=== PATIENT | male | born 1975 | race Caucasian/White ===

== ENCOUNTER 2017-03-29 08:36 | Day surgery (SDC) | payer OTHER ==
--- NOTE | 2017-03-21 13:42 | PCM.HPSURG ---
Subjective Date of Service: Mar 10, 2017 Referring Provider: Admitting Physician: Primary Care Physician: Nopcp Attending Physician: Joel Douglass MD Chief Complaint SEE BELOW History of Present Illness Patient: Edgar Ambrocio Date of : 1975 Visit Type: Pre Op Visit Date: 03/10/2017 01:00 PM This 41 year old male presents for Preop MIS Left L3-4 Microdiscectomy & Fat Graft. History of Present Illness: 1. Preop MIS Left L3-4 Microdiscectomy & Fat Graft This is a 41 year old male referred by [facility] (PCP) Dr. Yuval Calderon M.D. 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 This patient was last evaluated Dr. Douglass's Partner Neurosurgeon Dr. Arben Ponce M.D. on 01/26/2017 document a history of intermittent lower back pain. He associates this tear is very physical lifestyle & participation in sports. 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 He works out of a local [employer] gym. Approximately 2 months ago he got with the left lower extremity pain that radiated to his anterior cavazos. This is a new symptom and was incapacitating. He does not recall any inciting event or further injury other than his usual activity level. He has undergone career resource specialist, acupuncture, massage, & epidural steroid injection on 01/17/2017 at [facility] without sufficient relief his pain was 10/10. He has been taking hydrocodone/oxycodone, & Flexeril which only "takes the edge off". He is unable to sleep & concentrate, without affecting his performance at work where he functions as a senior accounting specialist for the [employer]. He spends most of his day in the office reading contacts. No new bowel or bladder discomfort or symptoms down the right lower extremity. No symptoms in the upper extremities. DIAGNOSTIC IMAGING: MRI of the lumbar spine is available for review from 01/10/2017. This demonstrates 5 lumbar vertebra. Multilevel spondylosis mild at most levels, except L4-5 where there is a "large left posterior lateral disc protrusion extending into the left neural foramen with moderate narrowing inferior disc extrusion in subarticular recess compressing & displacing the left L5 nerve root ". ASSESSMENT: 1. Left L4-5 disc extrusion with left L5 radiculopathy. 2. Left L5 motor weakness. The patient denies any related complete or acute loss of control of bowel or bladder function, saddle paresthesia or anesthesia. The patient has a reported pertinent past medical, surgical, family, & social history for past surgical history, & unremarkable medical history except for chronic recurrent exacerbations of back pain with no other then the above known positive history &/or review of all other organ systems. The patient's related complaints have been a serious detriment to their happiness and activities of daily living. 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 The procedure is scheduled to be performed by Dr. Joel Douglass M.D. on 03/29/2017. PHYSICAL EXAM General: This is a well-developed, well-nourished, male who is alert, cooperative, & appears to be in no acute distress with language and speech that is intact & fluent. There is no evidence of recent or remote memory impairment. HEENT: Head is normocephalic, atraumatic. Neck: Non-tender, [FULL] range of motion. Shane's, Lhermittes & Distraction is [NEGATIVE], & No adenopathy. Lungs: Clear to auscultation bilaterally. Heart: Regular rate & rhythm. No audible murmur. Abdomen: Soft, & non-tender. Back: No gross scoliosis, & non-tender. Extremities: No peripheral edema. Radial, dorsalis pedis pulses 2+ bilaterally. Fabers is [NEGATIVE] for hip pathology. Straight leg raise is positive on the left. Tinel's & Phalen's are [NEGATIVE] with no tenderness over cubital tunnel. Neurologic: Alert and oriented x 3. Language and speech are intact & fluent. No evidence of recent or remote memory impairment. Fund of knowledge is appropriate for age and level of education. Mood is euthymic. Cranial nerves: Pupils are equal and reactive to light and accommodation. Extra- ocular movements are intact. Visual arshad are intact with direct confrontation bilaterally. Sensation is intact on the face bilaterally. No facial asymmetry. Hearing appear to be intact bilaterally. Palate rises symmetrically. Shoulder shrug is symmetrical. Tongue is midline. Motor strength: [5/5] bilateral deltoid, biceps, triceps, wrist extension, handgrip; hip flexion, knee extension, plantar flexion, & extensor hallucis longus. Deep Tendon Reflexes: [2+] biceps, [2+] brachioradialis, [2+] triceps, [2+] knee jerks, [2+] ankle jerks. Toes are left dorsiflexion 4+/5 & right dorsiflexion 5/5. Down-going to plantar stimulation. Gill's sign is [ NEGATIVE]. Muscle Bulk and Tone: Intact in the upper & lower extremities. Sensation: Diminished pinprick and light touch in a left L5 dermatomal distribution.. Coordination: Intact abippp-sr-onld & lnvy-az-swsb, rapid alternating movements in the upper & lower extremities. Gait: Intact, tandem gait can be performed. Romberg is negative. Past Medical/Surgical History (Detailed) 03/10/2017 Family History (Detailed) 03/10/2017 Social History (Detailed) 03/10/2017 Tobacco use reviewed. Preferred language is Montenegrin. The patient does not need an web production artist. Smoking status: Never smoker. Smoking Status Use Status Type Smoking Status Years Used Total Pack Years no/never Never smoker Allergies: Ingredient Reaction Medication Name Comment NO KNOWN ALLERGIES Review of Systems System Neg/Pos Details MS Positive Back pain. ENMT Negative Hearing loss. Psych Negative Anxiety and depression. Constitutional Negative Chills and fever. Integumentary Negative Mrsa and rash. Negative Dysuria, urge incontinence and urinary incontinence. GI Negative Abdominal pain, constipation, diarrhea, nausea and vomiting. Eyes Negative Double vision and vision loss. MS Negative Bone/joint symptoms and muscle weakness. [place]/Lymph Negative Blood clots. Neuro Negative Dizziness, headache and seizures. Respiratory Negative Dyspnea, apnea and wheezing. Cardio Negative Chest pain, irregular heartbeat/palpitations, leg swelling and pacemaker. Endocrine Negative Weight gain and weight loss. Vital Signs Height Time ft in cm Last Measured Height Position % 1:03 PM 5.0 8.00 172.72 Weight/BSA/BMI Time lb oz kg Context % BMI kg/m2 BSA m2 1:03 PM 194.40 88.178 dressed with shoes 29.56 2.06 Blood Pressure Time BP mm/Hg Position Side Site Method Cuff Size 1:03 PM 104/68 sitting left wrist automatic adult Temperature/Pulse/Respiration Time Temp F Temp C Temp Site Pulse/min Pattern Resp/ min 1:03 PM 98.2 36.8 64 regular Pain Scale Time Pain Score Method 1:03 PM 3/10 Numeric Pain Intensity Scale Measured By Time Measured by 1:03 PM Deyanira Altman MA Screening Summary:o The following were reviewed: tobacco use Physical Exam Exam Findings Details Comments SEE ABOVE Assessment/Plan # Detail Type Description 1. Assessment Lumbar radiculopathy (M54.16). 2. Assessment Preoperative examination (Z01.818). Patient Plan We including your Attending Surgeon have discussed the risks and benefits associated your scheduled procedure which you have verbally acknowledged understanding including but not limited to the possibility of an outcome that we are unable to predict or was not mentioned. 1. You are scheduled for a left L4-5 minimally invasive microdiscectomy with harvest of subcutaneous fat from separate incision for epidural fat graft with Dr. Joel Douglass M.D. at [facility] on 03/29/2017. 2. Check in time is 8 AM. Also please ignore instructions below if told otherwise by your preadmission nurse or if you do not take the medications listed below. 3. Nothing to eat after midnight the night before surgery. You may take all of your "approved" medications with small sips of water. Remember to take your a.m. hypertension medication if it is a beta willam and ends in "olol. Otherwise ask your doctor if you need to hold your a.m. hypertension medication. 4. No aspirin, ibuprofen, Naprosyn, or other NSAIDs starting 7 days prior to surgery. 5. Please stop Warfarin/Coumadin or other blood thinners such as Plavix, Aggrenox, or Xarelto 7 days prior to your surgical procedure and follow specific instructions from your prescribing provider. 6. Please stop Lovenox bridging in the morning one day prior to procedure. 7. Please stop Suboxone/Buprenorphine at least 4 days prior to procedure. 8. Go to the hospital today to get her preoperative testing done. Take the order form to the surgery desk on the second floor of the hospital, [facility] (main entrance next to the emergency entrance). I will notify you if there is any test results that require further workup prior to surgery. 9. Follow the instructions you were given today, use the cleansing cloths the night before as well as the morning of her surgery. 10. If you are prescribed inhalers, CPAP or BiPAP machines you use at home bring along with you to the hospital. 11. ONLY If you take medications for Diabetes: If you have an insulin pump continue lowest (typically night-time) basal rate into the a.m. If you do not have a pump check h your a.m. blood sugar and hold insulin if BS less than 100. If you are taking long-acting, intermediate acting (NPH) or 70/30 preparation : Take half on day of procedure. If you are taking ultra long-acting insulin such as glargine, Lantus either at night or in the a.m. continue as scheduled ( including day of surgery). If you take short acting regular insulin (insulin not delivered via pump) discontinue on day of procedure. 12. Please call if you have any questions before your surgery: [phone]. Today's instructions/counseling include(s) Pre-operative instructions given to the patient and or legal roofing sales representative(s) orally and in writing. 13. Our office will contact you if there are any test results that require further workup prior to surgery. Provider Plan The patient's history and examination as well as radiological findings were reviewed with Dr. Joel Douglass M.D. and conveyed the patient in detail. The findings are consistent with lumbar disc extrusion & left L5 radiculopathy and are most likely the cause of the patient's severe, intractable, and debilitating low back pain radiating to the left lower extremity with weakness, numbness, & paresthesias. The patient has failed extensive conservative treatment for this condition. The treatment options were discussed with the patient. The options include attempt to live with the condition, reattempt conservative treatment, try a pain management intervention / injection or consider a surgical intervention. We are not extremely optimistic that further conservative treatment, pain management intervention and/or injection will adequately resolve the patient's symptoms of severe, intractable, and debilitating low back pain radiating to the left lower extremity with weakness, numbness, & paresthesias. Therefore we recommend left L4-5 minimally invasive microdiscectomy with harvest of subcutaneous fat from separate incision for epidural fat graft. The patient was provided/offered educational materials pertaining to their diagnosis and the above discussed procedure. We discussed the risks and benefits associated with this surgery. A spine model was used to explain the nature of this type of surgery. The risk of the required anesthesia was also mentioned including but not limited to organ failure such as heart attack, pneumonia and stroke even . The risk of this type of surgery was also mentioned. Including but not limited to an unsuccessful outcome, residual symptoms, referred or radiating posterior spinal myofascial inflammatory pain or spasm, post operative instability, instrumentation failure, sensory changes, blood loss, blood clots, wound infection, spinal cord or nerve damage, CSF or lymph leak, damage to neighboring structures such as perforation of the abdominal vasculature, bowel, ureter, and bladder, resulting in temporary or permanent dysfunction, even disability, paralysis, and . The recovery of this type of surgery was also mentioned. There is a 15% chance of recurrent disc herniation with a discectomy. The chances for improvement of the related left lower extremity symptomology at one year is 70-80%. The chances of improvement of unrelated local mechanical lower back pain is 50%. The patient verbalized understanding all the risks and benefits, knowing that it is impossible to predict or guarantee every surgical outcome; and would like to proceed with the above discussed procedure anyways. Surgery is scheduled for 03/29/2017 The standard [facility] preoperative screening tests, medicine restrictions, and logistical protocols apply. Any preoperative testing is within normal limits to undergo the above discussed procedure unless otherwise noted in the medical record. Medications (added, continued or stopped this visit): Start Date Medication Directions Stop Date cyclobenzaprine 10 mg tablet take 1 tablet by oral route 2 times every day 03/10/2017 docusate sodium 250 mg capsule take 1 capsule by oral route 2 times every day hydrocodone 10 mg-acetaminophen 325 mg tablet take 1 tablet by oral route every 4 - 6 hours as needed for pain oxycodone-acetaminophen 5 mg-325 mg tablet take 1 - 2 tablet by oral route every 4 - 6 hours as needed for pain 03/28/2017 Percocet 7.5 mg-325 mg tablet take 1 - 2 tablet by oral route every 4-6 hours as needed not to exceed 8 tablets per 24hrs Counseling/Educational Factors: Counseling / educational factors reviewed. Counseling / educational factors reviewed. This is a visit of 60 minutes. 50 minutes were spent counseling. This document may have been created using voice recognition software or other electronic means and may contain inadvertent claim manager errors. Provider: Kg CARTWRIGHT 03/10/2017 03:06 PM Document generated by: Kg Esqueda 03/10/2017 03:06 PM CC Providers: Yuval Calderon [address] [place] [id number]- Yuval Calderon [address] [place] [id number]- [place] [address] [place] [address] w matthias castro l i n i c s Shonda aly g Kg Esqueda PA-C March 21, 2017 13:42
[~2017-03-29] VITALS: Ht 172.7 cm; Wt 87.1 kg
[2017-03-29] VITALS (10 sets, daily range): BP systolic 101–123; BP diastolic 64–80; PULSE 59–86; RESP 10–16; O2SAT 95–99
[~2017-03-29 08:36] MED LIST: BACITRACIN IRRIGATION ONE; CYCL10TA9 PO; CeFAZolin 2 Gm/50 mL D5W IV Premix IV ONE; DOCU250C2 PO; Dexamethasone 4 mg/mL Inj IVPUSH PRN; EPHEDrine Sulfate 50 mg/mL Inj IVPUSH PRN; HYDR-4003 PO; HYDROmorphone 1 mg/mL Inj IVPUSH PRN; Labetalol 5 mg/mL 4 mL Inj IV PRN; Lactated Ringer's 1,000 ML IV SCH; Lactated Ringer's 500 ML IV PRN; MetoCLOpramide 5 mg/mL 2 mL Inj IVPUSH PRN; OXYC1TAB24 PO; Ondansetron 2 mg/mL 2 mL Inj IVPUSH PRN; Phenylephrine 10,000 mCg/mL Inj IVPUSH PRN; Thrombin Powder 5,000 Unit TOPICAL ONE; fentaNYL-PF 50 mCg/mL 2 mL Inj IVPUSH PRN; hydrALAZINE 20 mg/mL Inj IVPUSH PRN
[2017-03-29] MEDS ORDERED: Ondansetron 2 mg/mL 2 mL Inj ONE (08:37)
[2017-03-29] MEDS ORDERED: Succinylcholine Chloride 20 mg/mL 5 mL Inj ONE (08:37)
[2017-03-29] MEDS ORDERED: Dexamethasone 4 mg/mL Inj ONE (08:37)
[2017-03-29] MEDS ORDERED: Ketamine 10 mg/mL 20 mL Inj ONE (08:37)
[2017-03-29] MEDS ORDERED: Propofol 10,000 mCg/mL 20 mL Inj ONE (08:37)
[2017-03-29] MEDS ORDERED: fentaNYL-PF 50 mCg/mL 2 mL Inj ONE (08:37)
[2017-03-29] MEDS ORDERED: CeFAZolin Inj 2 gm / 50mL D5W IV ONE (08:58)
[2017-03-29] MEDS ORDERED: Bupivacaine Liposome 1.3% 20 mL Inj ONE (11:40)
[2017-03-29] MEDS ORDERED: Thrombin Powder 5,000 Unit TOPICAL ONE (11:40)
--- NOTE | 2017-03-29 11:40 | PCM.HPANE ---
Patient Data Date of Service: March 29, 2017 Surgeon Admitting Provider: Attending Provider:Joel Douglass MD Primary Care Physician:Robbi Other Provider:Carol Lay Anesthesia Reason for Visit Lumbar Radiculopathy Ht/WT & BMI Height (Feet): 5 Height (Inches): 8.00 Weight (Kilograms): 87.1 Body Mass Index 29.00 Allergies Coded Allergies: No Known Allergies (Unverified , 03/23/17) Past Anesthesia History Anesthesia History: Denies:: Abnormal Airway, Anesthesia Reactions, Difficult Intubation, Fam Anesthesia Reaction Diabetes History Hx Diabetes?: No MRSA MRSA: No Medications Hypertension Medication: No Home Meds Incl Beta Luis: No Reported Medications oxyCODONE-Acetaminophen 5-325 mg 1 Each Tablet1 Tab PO Q4H PRN For Pain Ref 0 03/23/17 Hydrocodone-Acetaminophen 5-325 mg 1 Each Tablet1 Tablet PO Q4H PRN For Pain Ref 0 03/23/17 Docusate Sodium 250 Mg [id number] Mg PO DAILY PRN For Constipation Ref 0 03/23/17 Cyclobenzaprine 10 Mg [id number] Mg PO BID PRN Spasm 03/23/17 History History of ENT Problems?: No HEENT History: Denies:: Abnormal Airway Cataracts Difficult Intubation Dysphagia Glaucoma Hearing Problem Sinus Problem TMJ Denture Type: None Teeth Condition: Within Normal Limits Missing Teeth Hx of Heart Problems?: No Cardiovascular History: Denies:: AICD Abdominal Aortic Aneurism Atrial Fibrillation Cardiac Surgery Chest Pain Congestive Heart Failure Edema Heart Murmur Hypertension Irregular Heartbeat Pacemaker Peripheral Vascular Hx of Respiratory Problem?: No Respiratory History: Denies:: Asthma COPD Cough Emphysema Oxygen Administration Pneumonia Tuberculosis Use of C-PAP Machine Hx Neurologic Problems?: No Neurological History: Denies:: Alzheimer's Disease CVA Headaches Multiple Sclerosis Parkinson's Disease Seizures TIA Hx of GI Problems?: No Hx of Problems?: Yes Genitourinary History: Positive for:: Kidney Stones (15 years ago- thinks poss lithotripsy) Denies:: Urinary Tract Infection Male Hx: Denies:: Prostate Problems Scrotal Mass Testicular Surgery Skin History: Denies:: History Skin Disorders? Pressure Ulcers Hx Musculoskeletal Problems?: Yes Musculoskeletal History: Positive for:: Back Injury (lumbar spine current admission problem) Denies:: Degenerative Joint Fibromyalgia Joint Replacement Myasthenia Gravis Osteoarthritis Rheumatoid Arthritis Systemic Lupus Hx of Psycho/Social Problems?: No Psycho Social History: Denies:: Anxiety Hx Depression Hx Surgeries?: Yes (poss lithotripsy- ) Hx Any Other Health Problems?: Yes Other History: Denies:: Cancer Thyroid Disease History Blood Transfusions: Positive for:: Accept Blood Products? Denies:: Blood Transfusions Hx Diabetes: No Hx Alcohol Use: YesAlcoholic Drinks Per Day: one drink monthlyHx Substance Use : NoHave You Smoked inLast 12 mo: No Stop/Bang S-Snoring: Do You Snore Loudly: No T-Tired: feel tired, fatigued: No O-Obsered: Observed not breath: No P-Blood Pressure: treated: No B- Body Mass Index > 35 kg/m2: No A- Age over 50: No N- Neck Large Circumference: No G- Gender Male: Yes KAEL Total Score: 1 KAEL Risk Assessment: Low Risk, <3 Yes Risk Assessment Category Category 1A: Patient has history of documented sleep apnea, and HAS NOT received any narcotic, sedative or anesthesia administration during this stay. Category 1B: Patient has history of documented sleep apnea, and HAS received any narcotic , sedative or anesthesia administration during this stay Category 2: Patient has SUSPECTED Obstructive Sleep Apnea, and HAS received any narcotic , sedative or anesthesia administration during this stay. Category 3: Patient has SUSPECTED Obstructive Sleep Apnea and HAS NOT received narcotic, sedative or anesthesia administration during this stay. Category 4: Outpatient in Procedural Areas with known sleep apnea or who screen positive for High Risk via the STOP/BANG questionnaire. Exam Exam Vital Signs Vital Signs Date Time Temp Pulse Resp B/P Pulse Ox O2 Delivery O2 Flow Rate FiO2 03/29/17 08:54 36.5 86 16 114/74 98 Room Air General Appearance: Alert, Oriented X3, Cooperative, No Acute Distress HEENT/AIRWAY: MP 1 Lungs: Clear to Auscultation, Normal Air Movement Heart: Exam Unremarkable, Regular Rate/Rhythm, No Murmurs/Rubs/Gallops Plan Impression Patient chart reviewed, patient interviewed and anesthestic plan with risks, benefits, and alternatives discussed, and informed consent obtained. ASA Physical Status: ASA1 Normal Healthy Anesthetic Plan: GA Bene/Risks/Altern/Consents: Yes HP Complete Prior to Induction: Yes Alli Mcbride MD March 29, 2017 11:40
[2017-03-29] MEDS ORDERED: Bacitracin 50,000 unit Inj ONE (12:07)
[2017-03-29] MEDS ORDERED: Bupivacaine-MPF 0.5% W/EPI 30 mL Inj INFILTRATE ONE (12:23)
[2017-03-29] MEDS ORDERED: Lactated Ringer's 1,000 ML IV ONE (12:24)
--- NOTE | 2017-03-29 12:51 | DRSVH ---
PROCEDURE: X-RAY LUMBAR SPINE, 1 VIEW INDICATIONS: LUMBAR RADICULOPATHY TECHNIQUE: Single fluoroscopic intraoperative views of the lumbar spine were acquired. COMPARISON: None. FINDINGS: Bones: Single parasagittal intraoperative view demonstrates localization at the L4-5 level. IMPRESSION: Intraoperative localization at the L4-5 level. This finding was discussed with Dr. Douglass at 12:42 PM on 03/29/17. Dictated by: Fidelina Patel M.D. on 03/29/2017 at 12:37 Approved by: Fidelina Patel M.D. on 03/29/2017 at 12:50
--- NOTE | 2017-03-29 13:10 | PCM.DISURG ---
Surgical Discharge Instruction Date of Service March 29, 2017 Dates of Hospitalization Date of Hospital Admission Day Surgery status 03/29/2017 Providers Admitting Physician: Primary Care Physician: Robbi Attending Physician: Joel Douglass MD Discharge Diagnosis Discharge Diagnosis Status post left L4-5 minimally invasive microdiscectomy with harvest of subcutaneous fat from separate incision for a epidural graft Post Operative diagnosis Status post left L4-5 minimally invasive microdiscectomy with harvest of subcutaneous fat from separate incision for epidural graft Additional Instructions Discharge Instructions Minimally Invasive Lumbar Spinal Microdiscectomy & Decompression Instructions What is my recovery like? Patient's usually go home the same day of surgery. A lumbar brace is worn for comfort only. What are my restrictions? You should not lift anything heavier than five pounds. You should not perform any excessive bending from the waist or twisting movements. Can I Shower? You may shower when you go home. You must remove the outside dressing on the 7th day after surgery, or change as needed if soiled or saturated (replacing new sterile gauze & water proof dressing) otherwise leave alone. The remaining small pieces of tape (steri-strips) directly on top of the incision may get wet. The steri-strips will fall off on their own. Can I drive? No, you should not drive until specifically given permission from your Doctor in a follow up appointment. Most Patient's can drive in 2-3 weeks if they are not taking narcotic pain medications or muscle relaxers. You may ride in a car, but should avoid trips longer than two hours in duration. When can I return work / sports? Your Doctor will discuss your return to work with you on your first postoperative follow-up appointment. Most patients may return to work within 2 weeks for sedentary jobs. More physically demanding jobs may require 3-6 months of healing before such work can be considered. When should I call the doctor? You should call your Doctor or go to the Emergency Department if you develop chest pain, shortness of breath, a temperature greater than 101.5 F, severe uncontrolled pain or weakness, loss of bowel or bladder function, choking, lots or drainage, pus discharge or constipation. Please be sure to give the patient the following instructions regarding comfort and pain medication use: During the recovery period, even with the use of pain medication, you may experience pain at the site of surgery. You may also have the same type of pain you had before surgery. Please use your pain scale as a guide for taking your pain medication. When your pain is greater than 4 out of 10, or when your pain reaches your personal tolerable level of pain, take your pain medication as prescribed. Use your pain medication on an 'as needed' basis. This means if your pain level is within your tolerable level of pain you DO NOT need to take the medication. As you get better, you will notice you can increase the time interval between doses and decrease the number of tablets you are taking, gradually taking less and less pain medication. Taking pain medication when it is not necessary (for example when your pain is tolerable or acceptable) can result in dangerous side effects and over- sedation. Signs and symptoms of over-sedation include: drowsiness, excessive sleeping, slow or difficult breathing, slurred speech, impaired thinking, confusion, impaired motor coordination. If you have any of these symptoms stop taking the medication and immediately contact your doctor. IF SYMPTOMS ARE LIFE THREATENING CALL 911. To decrease pain and swelling, frequently apply an ice pack for 20 min intervals with at least one hour off. When to take Acetaminophen for pain? If you don't have liver problems, allergies and/or Tylenol is not in your current pain medication. Take Extra Strength Tylenol 500mg 2 tabs by mouth every 6 hours as needed for pain. DO NOT EXCEED 8 TABS PER DAY. Follow Up Plan Follow Up Plan Follow-up with physician retail sales assistant in outpatient neurosurgical clinic in 1 week for wound check. Follow-up Provider (F9): Kg Esqueda PA-C Additional Information Attending Statement All documentation reviewed & orders authorized by Esdras Fabian Scott PA-C March 29, 2017 13:10
[2017-03-29] MEDS ORDERED: Lactated Ringer's 1,000 ML IV SCH (13:12)
[2017-03-29] MEDS ORDERED: HYDROmorphone 1 mg/mL Inj IVPUSH PRN (13:15)
[2017-03-29] MEDS ORDERED: Senna-Docusate 8.6-50 mg Tablet PO PRN (13:15)
[2017-03-29] MEDS ORDERED: Polyethylene Glycol (PEG) 17 Gm Powder PO PRN (13:15)
[2017-03-29] MEDS ORDERED: Acetaminophen IV 1,000 MG in IV Premix 1 EACH IV PRN (13:15)
[2017-03-29] MEDS ORDERED: Ondansetron 2 mg/mL 2 mL Inj IVPUSH PRN ×2 (13:15)
[2017-03-29] MEDS ORDERED: Sodium Biphos-Phos 133 mL Enema RECTAL PRN (13:15)
[2017-03-29] MEDS ORDERED: hydrOXYzine Pamoate 25 mg Capsule PO PRN (13:15)
[2017-03-29] MEDS ORDERED: MetoCLOpramide 5 mg/mL 2 mL Inj IVPUSH PRN (13:15)
[2017-03-29] MEDS ORDERED: Magnesium Hydroxide 10 mL Oral Concentration PO PRN (13:15)
--- NOTE | 2017-03-29 13:46 | OP ---
[address] [address] OPERATIVE REPORT PATIENT: SHARON MARIA : 1975 MR#: [id number] ADMIT: 03/29/2017 JOB ID: [id number] DATE OF SURGERY: 03/29/2017 SURGEON: Joel Douglass MD. PREOPERATIVE DIAGNOSIS(ES): Left L4-5 herniated disk. POSTOPERATIVE DIAGNOSIS(ES): Left L4-5 herniated disk. PROCEDURE: Left L4-5 discectomy, harvest of subcutaneous fat for epidural fat graft. Microdissection. MOISTURE METER OPERATOR: Kg Esqueda PA-C [employer] Utilities Sales Representative provided irrigation, retraction, and suction and was medically necessary. OPERATIVE PROCEDURE: Patient was brought to the operating room. General anesthesia with oral intubation was administered. Patient was turned prone on the laminectomy frame. Back was prepped and draped in sterile fashion. Compression boots were applied to legs. IV Ancef was given. Time-out was performed. The skin and paraspinal muscles were injected with Marcaine containing epinephrine. Under fluoroscopic guidance, a midline incision was made 15 mm in length over the L4-5 disk level. A dilator was passed through the lumbodorsal fascia on the left side of the L4 spinous process, down to the L4-5 interlaminar space, and serial dilators were passed over this to create a path for the 16 mm diameter distractor tube which was docked to the interlaminar space and medial facet on the left at L4-5. This was confirmed with fluoroscopy. Monopolar cautery was used to remove soft tissue attached to the bone and then a high-speed bur was used to remove the inferior portion of the left L4 hemilamina. The final layer of bone was removed with a Kerrison rongeur. The yellow ligament was resected over its lateral third with a curette and Kerrison rongeur, and the nerve root was visualized. The nerve root was gently retracted. A single fragment of herniated disk was encountered. This free fragment was extracted with micropituitary forceps. The area under the thecal sac and under the nerve root and out the foramen was probed and there was no remaining compression. Annulus was inspected and there was no single large hole in the annulus and there was no remaining bulge. The wound was irrigated. A contiguous but separate incision was made from the primary skin incision and a piece of subcutaneous fat was harvested and this was placed on the nerve root to act as an adhesion barrier. The tube was removed and the wound was closed with 2-0 Vicryl fascia, 2-0 Vicryl subcutaneous tissue, and Steri-Strips in the skin. A sterile dressing was applied. Patient was turned supine, extubated, and brought to recovery room in stable condition. There were no complications. ESTIMATED BLOOD LOSS: 5 cc.
--- NOTE | 2017-03-29 14:24 | PCM.ANEP1 ---
Post Anesthesia Phase 1 PACU Phase 1 Assessment Date of Service: March 29, 2017 Vital Signs Vital Signs Date Time Temp Pulse Resp B/P Pulse Ox O2 Delivery O2 Flow Rate FiO2 03/29/17 13:45 36.6 59 16 114/70 98 Room Air 03/29/17 13:41 66 13 112/73 95 Room Air 03/29/17 13:36 72 10 101/80 99 Room Air 03/29/17 13:30 62 13 115/69 98 Room Air 03/29/17 13:25 71 10 121/64 99 Room Air 03/29/17 13:20 67 11 116/64 99 Room Air 03/29/17 13:15 74 13 123/67 99 Room Air 03/29/17 13:09 36.3 84 15 114/71 97 Room Air 03/29/17 08:54 36.5 86 16 114/74 98 Room Air Anesthetic Administered: GA Level of Alertness: Awake, talking Pain: No Nausea or Vomiting: No Oxygen Delivery: Room Air Lungs: Clear to Auscultation, Normal Air Movement Complications: No Alli Mcbride MD March 29, 2017 14:24
[2017-03-29] MEDS ORDERED: Senna-Docusate 8.6-50 mg Tablet PO SCH (20:30)
== END 2017-03-29 23:59 | disposition home or self-care (01) ==
LOC: SAS 08:36
PROVIDERS: ATTEND Neurological Surgery
DX: M51.16 Intervertebral disc disorders with radiculopathy, lumbar region (principal); Z87.442 Personal history of urinary calculi
CPT/HCPCS: 20926; 63030; 72020; 76000; J0131; J0690; J7120